=== PATIENT | female | born 1995 | race Caucasian/White ===

== ENCOUNTER → 2023-06-25 16:12 | Outpatient (REF) | payer OTHER, SELFPAY | LOC: PNTC 16:12 | PROVIDERS: ATTENDING PHYSICIAN Obstetrics & Gynecology | DX: O99.210 Obesity complicating pregnancy, unspecified trimester (principal); O98.519 Other viral diseases complicating pregnancy, unspecified trimester; U07.1 COVID-19 | CPT/HCPCS: 59025; 76815 ==

== ENCOUNTER → 2023-07-02 16:19 | Outpatient (REF) | payer OTHER, SELFPAY | LOC: PNTC 16:19 | PROVIDERS: ATTENDING PHYSICIAN Obstetrics & Gynecology | DX: O99.210 Obesity complicating pregnancy, unspecified trimester (principal); O98.519 Other viral diseases complicating pregnancy, unspecified trimester | CPT/HCPCS: 59025; 76816 ==

== ENCOUNTER 2023-07-06 19:40 | Inpatient (IN) | payer OTHER, SELFPAY ==
[2023-07-06 20:08] VITALS: BP 131/84; BMI 48.9
[2023-07-06 20:41] LABS: % Basophils 0.3 % (0-2); % Eosinophils 0.4 % (0-6); % Immature Granulocytes 0.4 % (0-0.5); % Lymphocytes 13.3 % (20.5-51.1); % Monocytes 4.1 % (1.7-9.3); % Neutrophils 81.5 % (42.2-75.2); Absolute Eosinophils 0.1 10^3/uL (0-0.7); Absolute Immature Granulocytes 0.1 10^3/uL (0-0.05); Absolute Lymphocytes 1.8 10^3/uL (1.2-3.4); Absolute Monocytes 0.6 10^3/uL (0.1-0.6); Hematocrit 31.9 % (37.0-47.0); Hemoglobin 11.3 g/dL (12.0-16.0); Mean Corp Hgb Conc. 35.4 g/dL (33.0-37.0); Mean Corpuscular Hgb 29.2 pg (27.0-31.0); Mean Corpuscular Volume 82.4 fL (81.0-99.0); Mean Platelet Volume 11.4 fL (7.4-10.4); Nucleated Red Blood Cells % 0 %; Platelet Count 179 10^3/uL (130-400); Red Blood Cell Count 3.87 10^6/uL (4.20-5.40); Red Cell Dist. Width 14.6 % (11.5-14.5); White Blood Cell Count 13.6 10^3/uL (4.8-10.8)
[2023-07-06] MEDS: CYTOTEC 25 MICROGRAM VAG (21:07)
[2023-07-07] MEDS: CYTOTEC 50 MICROGRAM PO ×2 (01:11→05:05)
[2023-07-07] MEDS: PENICILLIN 110 UNITS IV (10:35)
[2023-07-07] MEDS: CYTOTEC PO ×2 (10:41→15:21)
[2023-07-07] MEDS: FENTANYL/BUPIVACAINE 100 EPIDURAL (11:29)
[2023-07-07] MEDS: SUBLIMAZE 100 MCG EPIDURAL (11:29)
[2023-07-07] MEDS: PITOCIN 30 UNITS/NSS 500 ML IV (12:04)
[2023-07-07] MEDS: PENICILLIN 55 UNITS IV (15:07)
[2023-07-07] MEDS: TYLENOL 650 MG PO (21:15)
[2023-07-08] MEDS: MOTRIN 600 MG PO ×2 (02:24→08:20)
[2023-07-08 05:04] LABS: Hematocrit 29.5 % (37.0-47.0)
[2023-07-08] MEDS: SYNTHROID 125 MCG PO (06:03)
[2023-07-08] MEDS: SENOKOT-S 1 TABLET PO (08:20)
[2023-07-08] MEDS: FEOSOL 325 MG PO (11:43)
[2023-07-09] MEDS: SYNTHROID 125 MCG PO (05:52)
[2023-07-09] MEDS: MOTRIN 600 MG PO (06:39)
[2023-07-09] MEDS: FEOSOL 325 MG PO (08:04)
[2023-07-09] MEDS: TYLENOL 650 MG PO (08:04)
[2023-07-14 16:20] LABS: Syphilis/T. pallidum Ab Reflex Negative (Negative)
== END 2023-07-09 11:35 | disposition home or self-care (01) | DRG 807 ==
LOC: LDRP 19:40
PROVIDERS: Obstetrics & Gynecology; ADMITTING PHYSICIAN Obstetrics & Gynecology; FAMILY PHYSICIAN Physician Assistant Medical
PROC: 3E033VJ Introduction of Other Hormone into Peripheral Vein, Percutaneous Approach (ICD-10-PCS; 2023-07-06)
PROC: 3E0P7VZ Introduction of Hormone into Female Reproductive, Via Natural or Artificial Opening (ICD-10-PCS; 2023-07-07)
PROC: 10E0XZZ Delivery of Products of Conception, External Approach (ICD-10-PCS; 2023-07-07)
PROC: 0HQ9XZZ Repair Perineum Skin, External Approach (ICD-10-PCS; 2023-07-07)
DX: O36.63X0 Maternal care for excessive fetal growth, third trimester, not applicable or unspecified (principal); Z37.0 Single live birth; Z3A.40 40 weeks gestation of pregnancy; O48.0 Post-term pregnancy; O99.214 Obesity complicating childbirth; O99.824 Streptococcus B carrier state complicating childbirth; O70.0 First degree perineal laceration during delivery; O26.893 Other specified pregnancy related conditions, third trimester; Z67.11 Type A blood, Rh negative
CPT/HCPCS: 36415; 85014; 85018; 85025; 86780; 86850; 86900; 86901